=== PATIENT | male | born 1985 | race American Indian/Alaskan Native ===

== ENCOUNTER 2017-03-26 04:30 | Inpatient (IN) | payer OTHER ==
[2017-03-26 05:42] LABS: Basophils % (Auto) 0.6 % (0.0-1.8); Eosinophils % (Auto) 2.2 % (0.0-4.3); Hematocrit 44.6 % (35.5-45.6); Hemoglobin 15.5 gm/dl (11.8-15.2); Mean Corpuscular HGB Conc 35 % (32-34); Mean Corpuscular Hemoglobin 31 pg (28-32); Mean Corpuscular Volume 89 fl (84-94); Platelet Count 246 K/mm3 (140-440); Red Blood Count 5.04 M/mm3 (3.65-5.03); Red Cell Distribution Width 13.5 % (13.2-15.2); White Blood Count 8.7 K/mm3 (4.5-11.0)
[2017-03-26 05:57] LABS: Anion Gap 19 mmol/L; BUN/Creatinine Ratio 21.11; Blood Urea Nitrogen 19 mg/dL (9-20); Calcium 9.9 mg/dL (8.4-10.2); Carbon Dioxide 25 mmol/L (22-30); Chloride 96.5 mmol/L (98-107); Glucose 108 mg/dL (75-100); Potassium 3.9 mmol/L (3.6-5.0); Sodium 137 mmol/L (137-145)
[2017-03-26] MEDS ORDERED: CARDIZEM IV ONE (06:20)
[2017-03-26 06:49] LABS: Urine Drugs of Abuse Note Disclamer
[2017-03-26 06:55] LABS: Bilirubin,Urine NEG (Negative); Blood,Urine NEG (Negative); Ketones,Urine NEG (Negative); Leukocyte Esterase,Urine NEG (Negative); Mucus,Urine FEW /HPF; Nitrite,Urine NEG (Negative); Protein,Urine <15 mg/dL mg/dL (Negative); Urobilinogen,Urine < 2.0 mg/dL (<2.0)
[2017-03-26 07:53] LABS: INR 0.9 (0.87-1.13)
[2017-03-26 07:54] LABS: Partial Thromboplastin Time 29.7 Sec. (24.2-36.6)
[2017-03-26 08:06] LABS: Alanine Aminotransferase 43 units/L (7-56); Albumin 4.6 g/dL (3.9-5); Albumin/Globulin Ratio 1.6 %; Alkaline Phosphatase 95 units/L (35-129); Total Protein 7.4 g/dL (6.3-8.2)
[2017-03-26 08:12] LABS: Bilirubin,Direct < 0.2 mg/dL (0-0.2)
[2017-03-26] MEDS ORDERED: NITROSTAT SL PRN (08:19)
[2017-03-26] MEDS ORDERED: MORPHINE IV PRN (08:19)
[2017-03-26] MEDS ORDERED: SODIUM CHLORIDE FLUSH SYRINGE 10 ML IV PRN (08:19)
[2017-03-26 09:11] LABS: Basophils % (Auto) 0.6 % (0.0-1.8); Hematocrit 45.9 % (35.5-45.6); Hemoglobin 15.7 gm/dl (11.8-15.2); Mean Corpuscular HGB Conc 34 % (32-34); Mean Corpuscular Hemoglobin 31 pg (28-32); Mean Corpuscular Volume 90 fl (84-94); Platelet Count 252 K/mm3 (140-440); Red Blood Count 5.09 M/mm3 (3.65-5.03); Red Cell Distribution Width 13.5 % (13.2-15.2); White Blood Count 8.3 K/mm3 (4.5-11.0)
[2017-03-26 09:15] LABS: Anion Gap 19 mmol/L; BUN/Creatinine Ratio 17.77; Blood Urea Nitrogen 16 mg/dL (9-20); Calcium 9.6 mg/dL (8.4-10.2); Carbon Dioxide 26 mmol/L (22-30); Chloride 97.2 mmol/L (98-107); Cholesterol 186 mg/dL (50-199); Glucose 106 mg/dL (75-100); HDL Cholesterol 55 mg/dL (40-59); LDL Cholesterol,Direct 93 mg/dL (50-130); Sodium 138 mmol/L (137-145); Triglycerides 192 mg/dL (2-149)
--- NOTE | 2017-03-26 09:24 | History and Physical Report ---
History of Present Illness Date of examination: 03/26/17 Date of admission: 03/26/17 08:09 Chief complaint: I feel my heart is skipping beats, and am having some chest pain" History of present illness: Patient is a 31-year-old male with no significant past medical history who presents to the hospital with complaint of palpitations and chest pain. He reports that the symptoms started in the early hours of this morning waking him up from sleep about 4 hours prior to presentation to the hospital. He describes a sensation of skipped beats. He also reports an atypical chest pain which he states is not reproducible, nonexertional changes waxes and wanes describes as as 4/10 intensity with no aggravating or alleviating factors. He reports that he has experienced skipping heartbeats since he was age 22 and most times will resolve with Valsalva maneuver, But this time was not resolving. He denies any diaphoresis, social shortness of breath, nausea vomiting or diarrhea. He denies any fever. ROS Constitutional: No fever, fatigue or weight loss. Skin: No rash. Eyes: No recent vision problems or eye pain. ENT: No congestion, ear pain, or sore throat. Endocrine: No thyroid problems. Cardiovascular: Chest pain with palpitations Respiratory: No cough, shortness of breath, congestion, or wheezing. Gastrointestinal: No abdominal pain, nausea, vomiting, or diarrhea. Genitourinary: No dysuria. Musculoskeletal: No joint swelling. Neurologic: No seizures. Hematologic: No unusual bruising or bleeding. Psychiatric: No psychiatric problems, hallucinations or depression. All other systems reviewed and otherwise negative. Past History Past Medical History: No medical history Past Surgical History: No surgical history Social history: full code. denies: smoking, alcohol abuse, prescription drug abuse, IV drug use Family history: no significant family history Medications and Allergies Allergies Allergy/AdvReac Type Severity Reaction Status Date / Time No Known Allergies Allergy Unverified 03/26/17 04:53 Home Medications Medication Instructions Recorded Confirmed Last Taken Type No Known Home Medications [No 03/26/17 03/26/17 Unknown History Reported Home Medications] Active Meds: Active Medications Aspirin (Aspirin) 325 mg PO QDAY AGUS Atorvastatin Calcium (Lipitor) 40 mg PO QHS AGUS Morphine Sulfate (Morphine) 2 mg IV Q5MIN PRN PRN Reason: Chest Pain Nitroglycerin (Nitrostat) 0.4 mg SL Q5M PRN PRN Reason: Chest Pain Sodium Chloride (Sodium Chloride Flush Syringe 10 Ml) 10 ml IV PRN PRN PRN Reason: LINE FLUSH Exam - Physical Exam Narrative exam: VITAL SIGNS: Reviewed. GENERAL: The patient appeared well nourished and normally developed. Vital signs as documented. HEAD: No signs of head trauma. EYES: Pupils are equal. Extraocular motions intact. EARS: Hearing grossly intact. MOUTH: Oropharynx is normal. NECK: No adenopathy, no JVD. CHEST: Chest with clear breath sounds bilaterally. No wheezes, rales, or rhonchi. CARDIAC: Regularly irregular rate and rhythm. S1 and S2, without murmurs, gallops, or rubs. VASCULAR: No Edema. Peripheral pulses normal and equal in all extremities. ABDOMEN: Soft, without detectable tenderness. No sign of distention. No rebound or guarding, and no masses palpated. Bowel Sounds normal. MUSCULOSKELETAL: Good range of motion of all major joints. Extremities without clubbing, cyanosis or edema. NEUROLOGIC EXAM: Alert and oriented x 3. No focal sensory or strength deficits. Speech normal. Follows commands. PSYCHIATRIC: Mood normal. SKIN: No rash or lesions. - Constitutional Vitals: Temp Pulse Resp BP Pulse Ox 97.7 F 120 H 20 148/85 98 03/26/17 04:53 03/26/17 06:46 03/26/17 05:44 03/26/17 06:46 03/26/17 05:44 Results - Labs CBC & Chem 7: 03/26/17 09:02 03/26/17 07:24 Labs: Laboratory Last Values WBC 8.3 K/mm3 (4.5-11.0) 03/26/17 09:02 RBC 5.09 M/mm3 (3.65-5.03) H 03/26/17 09:02 Hgb 15.7 gm/dl (11.8-15.2) H 03/26/17 09:02 Hct 45.9 % (35.5-45.6) H 03/26/17 09:02 MCV 90 fl (84-94) 03/26/17 09:02 MCH 31 pg (28-32) 03/26/17 09:02 MCHC 34 % (32-34) 03/26/17 09:02 RDW 13.5 % (13.2-15.2) 03/26/17 09:02 Plt Count 252 K/mm3 (140-440) 03/26/17 09:02 Lymph % (Auto) 24.5 % (13.4-35.0) 03/26/17 09:02 [place] % (Auto) 6.7 % (0.0-7.3) 03/26/17 09:02 Eos % (Auto) 2.0 % (0.0-4.3) 03/26/17 09:02 Baso % (Auto) 0.6 % (0.0-1.8) 03/26/17 09:02 Lymph # 2.0 K/mm3 (1.2-5.4) 03/26/17 09:02 [place] # 0.6 K/mm3 (0.0-0.8) 03/26/17 09:02 Eos # 0.2 K/mm3 (0.0-0.4) 03/26/17 09:02 Baso # 0.1 K/mm3 (0.0-0.1) 03/26/17 09:02 Seg Neutrophils % 66.2 % (40.0-70.0) 03/26/17 09:02 Seg Neutrophils # 5.5 K/mm3 (1.8-7.7) 03/26/17 09:02 PT 12.1 Sec. (12.2-14.9) L 03/26/17 07:24 INR 0.90 (0.87-1.13) 03/26/17 07:24 APTT 29.7 Sec. (24.2-36.6) 03/26/17 07:24 Sodium 138 mmol/L (137-145) 03/26/17 07:24 Potassium 4.0 mmol/L (3.6-5.0) 03/26/17 07:24 Chloride 97.2 mmol/L (98-107) L 03/26/17 07:24 Carbon Dioxide 26 mmol/L (22-30) 03/26/17 07:24 Anion Gap 19 mmol/L 03/26/17 07:24 BUN 16 mg/dL (9-20) 03/26/17 07:24 Creatinine 0.9 mg/dL (0.8-1.5) 03/26/17 07:24 Estimated GFR > 60 ml/min 03/26/17 07:24 BUN/Creatinine Ratio 17.77 % 03/26/17 07:24 Glucose 106 mg/dL (75-100) H 03/26/17 07:24 Calcium 9.6 mg/dL (8.4-10.2) 03/26/17 07:24 Magnesium 2.00 mg/dL (1.7-2.3) 03/26/17 07:24 Total Bilirubin 0.30 mg/dL (0.1-1.2) 03/26/17 07:24 Direct Bilirubin < 0.2 mg/dL (0-0.2) 03/26/17 07:24 AST 24 units/L (5-40) 03/26/17 07:24 ALT 43 units/L (7-56) 03/26/17 07:24 Alkaline Phosphatase 95 units/L (35-129) 03/26/17 07:24 Troponin T < 0.010 ng/mL (0.00-0.029) 03/26/17 07:24 NT-Pro-B Natriuret Pep 35.36 pg/mL (0-450) 03/26/17 07:24 Total Protein 7.4 g/dL (6.3-8.2) 03/26/17 07:24 Albumin 4.6 g/dL (3.9-5) 03/26/17 07:24 Albumin/Globulin Ratio 1.6 % 03/26/17 07:24 Triglycerides 192 mg/dL (2-149) H 03/26/17 07:24 Cholesterol 186 mg/dL (50-199) 03/26/17 07:24 LDL Cholesterol Direct 93 mg/dL (50-130) 03/26/17 07:24 HDL Cholesterol 55 mg/dL (40-59) 03/26/17 07:24 Cholesterol/HDL Ratio 3.38 % 03/26/17 07:24 TSH 1.170 mlU/mL (0.270-4.200) 03/26/17 07:24 Free T4 1.23 ng/dL (0.76-1.46) 03/26/17 07:24 Urine Color Straw (Yellow) 03/26/17 06:42 Urine Turbidity Clear (Clear) 03/26/17 06:42 Urine pH 8.0 (5.0-7.0) H 03/26/17 06:42 Ur Specific [place] 1.012 (1.003-1.030) 03/26/17 06:42 Urine Protein <15 mg/dl mg/dL (Negative) 03/26/17 06:42 Urine Glucose (UA) Neg mg/dL (Negative) 03/26/17 06:42 Urine Ketones Neg mg/dL (Negative) 03/26/17 06:42 Urine Blood Neg (Negative) 03/26/17 06:42 Urine Nitrite Neg (Negative) 03/26/17 06:42 Urine Bilirubin Neg (Negative) 03/26/17 06:42 Urine Urobilinogen < 2.0 mg/dL (<2.0) 03/26/17 06:42 Ur Leukocyte Esterase Neg (Negative) 03/26/17 06:42 Urine WBC (Auto) 2.0 /HPF (0.0-6.0) 03/26/17 06:42 Urine RBC (Auto) 3.0 /HPF (0.0-6.0) 03/26/17 06:42 Urine Mucus Few /HPF 03/26/17 06:42 Urine Opiates Screen Presumptive negative 03/26/17 06:42 Urine Methadone Screen Presumptive negative 03/26/17 06:42 Ur Barbiturates Screen Presumptive negative 03/26/17 06:42 Ur Phencyclidine Scrn Presumptive negative 03/26/17 06:42 Ur Amphetamines Screen Presumptive negative 03/26/17 06:42 U Benzodiazepines Scrn Presumptive negative 03/26/17 06:42 Urine Cocaine Screen Presumptive negative 03/26/17 06:42 U Marijuana (THC) Screen Presumptive negative 03/26/17 06:42 Drugs of Abuse Note Disclamer 03/26/17 06:42 - Imaging and Cardiology EKG: image reviewed (afib) Assessment and Plan Assessment and plan: Patient is a 31-year-old male with no significant past medical history who presents to the hospital with complaint of palpitations and chest pain. He reports that the symptoms started in the early hours of this morning waking him up from sleep about 4 hours prior to presentation to the hospital. He describes a sensation of skipped beats. He also reports an atypical chest pain which he states is not reproducible, nonexertional changes waxes and wanes describes as as 4/10 intensity with no aggravating or alleviating factors. He reports that he has experienced skipping heartbeats since he was age 22 and most times will resolve with Valsalva maneuver, But this time was not resolving. He denies any diaphoresis, social shortness of breath, nausea vomiting or diarrhea. He denies any fever. Atrial Fibrillation with RVR * Start on Diltazem Drip, * Check thryoid panel, Echo cardiogram * Cardiology consult * UDS reveiwed and negative Atypical chest pain * acs Protocol, Asa, troponin DVT/GI prophy Plan of care discussed with patient and family Advance Directives: Yes Plan of care discussed with patient/family: Yes
--- NOTE | 2017-03-26 09:54 | XRay Report ---
ROUTINE CHEST, TWO VIEWS: HISTORY: Shortness of breath. The trachea, heart, mediastinal contour, lung wheeler and bony thorax are unremarkable. IMPRESSION: Unremarkable chest x-ray.
[2017-03-26] MEDS ORDERED: CARDIZEM/D5W 100MG/100ML 100 MG/100 ML BAG IV SCH (10:00)
[2017-03-26] MEDS: ASPIRIN PO SCH (10:39)
[2017-03-26 10:51] LABS: Bilirubin,Urine NEG (Negative); Blood,Urine NEG (Negative); Ketones,Urine NEG (Negative); Leukocyte Esterase,Urine NEG (Negative); Nitrite,Urine NEG (Negative); Protein,Urine <15 mg/dL mg/dL (Negative); RBC,Urine < 1.0 /HPF (0.0-6.0); Urobilinogen,Urine < 2.0 mg/dL (<2.0)
--- NOTE | 2017-03-26 13:36 | Emergency Department Report ---
ED General Adult HPI - General Chief complaint: Chest Pain Stated complaint: CP/LALITHA Time Seen by Provider: 03/26/17 06:16 Source: patient Mode of arrival: Ambulatory Limitations: No Limitations - History of Present Illness Initial comments: The patient states that the reason why he came to the hospital is because he has an irregular heart rhythm which has persisted for the last few days. He states he occasionally has chest pain with this is not an active complaint. He is not complaining of chest pain now nor dyspnea. He admits that he had palpitations and or an irregular heart rhythm for the past 8 years. He states that he usually can control it by essentially of Valsalva maneuver. However now it is persistent. He denies ever seeing a doctor for evaluation. He does not complain of shortness breath nausea vomiting or sweating leg pain or swelling. Said no recent travel. He has no history of thyroid disease. -: year(s) (see HPI) Location: chest (anterior nonradiating nonpleuritic) Radiation: non-radiation Severity scale (0 -10): 0 Quality: other (did not describe) Consistency: now resolved Improves with: none Worsens with: none Associated Symptoms: denies other symptoms Treatments Prior to Arrival: none - Related Data Home Medications Medication Instructions Recorded Confirmed Last Taken No Known Home Medications [No 03/26/17 03/26/17 Unknown Reported Home Medications] Allergies Allergy/AdvReac Type Severity Reaction Status Date / Time No Known Allergies Allergy Unverified 03/26/17 04:53 ED Review of Systems ROS: Stated complaint: CP/LALITHA Other details as noted in HPI Constitutional: denies: chills, fever Eyes: denies: eye pain, eye discharge, vision change ENT: denies: ear pain, throat pain Respiratory: denies: cough, shortness of breath, wheezing Cardiovascular: as per HPI, chest pain. denies: palpitations Endocrine: no symptoms reported Gastrointestinal: denies: abdominal pain, nausea, diarrhea Genitourinary: denies: urgency, dysuria Musculoskeletal: denies: back pain, joint swelling, arthralgia Skin: denies: rash, lesions Neurological: denies: headache, weakness, paresthesias Psychiatric: denies: anxiety, depression Hematological/Lymphatic: denies: easy bleeding, easy bruising ED Past Medical Hx - Past Medical History Previous Medical History?: No - Surgical History Past Surgical History?: Yes Additional Surgical History: hernia repair - Social History Smoking Status: Current Every Day Smoker - Medications Home Medications: Home Medications Medication Instructions Recorded Confirmed Last Taken Type No Known Home Medications [No 03/26/17 03/26/17 Unknown History Reported Home Medications] ED Physical Exam - General Limitations: No Limitations General appearance: alert, in no apparent distress - Head Head exam: Present: atraumatic, normocephalic - Eye Eye exam: Present: normal appearance. Absent: scleral icterus - ENT ENT exam: Present: mucous membranes moist - Neck Neck exam: Present: normal inspection - Respiratory Respiratory exam: Present: normal lung sounds bilaterally. Absent: respiratory distress - Cardiovascular Cardiovascular Exam: Present: tachycardia, irregular rhythm. Absent: systolic murmur, diastolic murmur, rubs, gallop - GI/Abdominal GI/Abdominal exam: Present: soft, normal bowel sounds. Absent: distended, tenderness, guarding, rebound - Rectal Rectal exam: Present: deferred - Extremities Exam Extremities exam: Present: normal inspection - Back Exam Back exam: Present: normal inspection - Neurological Exam Neurological exam: Present: alert, oriented X3, CN II-XII intact. Absent: motor sensory deficit - Psychiatric Psychiatric exam: Present: normal affect, normal mood - Skin Skin exam: Present: warm, dry, intact, normal color. Absent: rash ED Course Vital Signs 03/26/17 03/26/17 03/26/17 04:53 05:44 06:46 Temperature 97.7 F Pulse Rate 119 H 120 H Respiratory 20 Rate Blood Pressure 140/88 148/85 Blood Pressure [Left] O2 Sat by Pulse 98 98 Oximetry 03/26/17 10:39 Temperature 98.2 F Pulse Rate 95 H Respiratory 20 Rate Blood Pressure Blood Pressure 113/96 [Left] O2 Sat by Pulse 99 Oximetry - Reevaluation(s) Reevaluation #1: Patient was given 5 of diltiazem IV. This produced adequate rate control. I think he probably can be placed on by mouth medication. In any case he was hemodynamically stable and admitted to the hospital service further care and evaluation. I think likely this patient will require anticoagulation. However , I will leave the choice thereof to the hospitalist staff. 03/26/17 13:43 03/26/17 13:45 ED Medical Decision Making - Lab Data Result diagrams: 03/26/17 09:02 03/26/17 07:24 - EKG Data EKG shows normal: axis, intervals, QRS complexes (somewhat increased voltage), ST-T waves (nonspecific change) Rate: tachycardia - EKG Data Interpretation: other (atrial fibrillation with RVR) - Radiology Data interpreted by me: Chest x-ray showed no acute process Critical care attestation.: If time is entered above; I have spent that time in minutes in the direct care of this critically ill patient, excluding procedure time. ED Disposition Clinical Impression: Atrial fibrillation with RVR Chest pain Qualifiers: Chest pain type: unspecified Qualified Code(s): R07.9 - Chest pain, unspecified Disposition: DC-09 OP ADMIT IP TO THIS HOSP Is pt being admited?: Yes Does the pt Need Aspirin: Yes Condition: Stable Time of Disposition: 13:47
--- NOTE | 2017-03-26 16:11 | Consultation ---
Past History Past Medical History: No medical history Past Surgical History: No surgical history Social history: full code. denies: smoking, alcohol abuse, prescription drug abuse, IV drug use Family history: no significant family history Medications and Allergies Allergies Allergy/AdvReac Type Severity Reaction Status Date / Time No Known Allergies Allergy Unverified 03/26/17 04:53 Home Medications Medication Instructions Recorded Confirmed Last Taken Type No Known Home Medications [No 03/26/17 03/26/17 Unknown History Reported Home Medications] Active Meds: Active Medications Aspirin (Aspirin) 325 mg PO QDAY AGUS Last Admin: 03/26/17 10:39 Dose: 325 mg Diltiazem HCl (Cardizem/D5w 100mg/100ml) 100 mg in 100 mls @ 5 mls/hr IV TITR AGUS; 5 MG/HR PRN Reason: Protocol Last Admin: 03/26/17 12:48 Dose: 5 mg/hr, 5 mls/hr Morphine Sulfate (Morphine) 2 mg IV Q5MIN PRN PRN Reason: Chest Pain Nitroglycerin (Nitrostat) 0.4 mg SL Q5M PRN PRN Reason: Chest Pain Sodium Chloride (Sodium Chloride Flush Syringe 10 Ml) 10 ml IV PRN PRN PRN Reason: LINE FLUSH Physical Examination Vital Signs Temp Pulse BP Pulse Ox 97.7 F 119 H 140/88 98 03/26/17 04:53 03/26/17 04:53 03/26/17 04:53 03/26/17 04:53 Results 03/26/17 09:02 03/26/17 07:24 CBC 03/26/17 Range/Units 09:02 WBC 8.3 (4.5-11.0) K/mm3 RBC 5.09 H (3.65-5.03) M/mm3 Hgb 15.7 H (11.8-15.2) gm/dl Hct 45.9 H (35.5-45.6) % Plt Count 252 (140-440) K/mm3 Lymph # 2.0 (1.2-5.4) K/mm3 [place] # 0.6 (0.0-0.8) K/mm3 Eos # 0.2 (0.0-0.4) K/mm3 Baso # 0.1 (0.0-0.1) K/mm3 Assessment and Plan Detailed Cardiology consult dictated.
[2017-03-26] MEDS ORDERED: LOPRESSOR PO STA (16:16)
[2017-03-26] MEDS: LOPRESSOR PO SCH (22:50)
[2017-03-27 08:59] VITALS: BP 118/74
--- NOTE | 2017-03-27 10:25 | Discharge Summary ---
Providers - Providers Date of Admission: 03/26/17 08:09 Date of discharge: 03/27/17 Attending physician: EVELIO GRANT MD 03/26/17 Consult to Cardiac Rehabilitation [CONS] Routine Reason For Exam: Phase I 03/26/17 08:18 Consult to Physician [CONS] Routine Consulting Provider: DALIA AQUINO Reason For Exam: afib Place consult to:: Dr. Aquino Notified:: Carolee ROSA Phone number called:: Was contact made?: Yes If yes, spoke with:: [facility] Time called:: 10:46 Primary care physician: [employer] Hospitalization Reason for admission: palpitations Condition: Stable Hospital course: Patient is a 31-year-old male with no significant past medical history who presents to the hospital with complaint of palpitations and chest pain. He reports that the symptoms started in the early hours of this morning waking him up from sleep about 4 hours prior to presentation to the hospital. He describes a sensation of skipped beats. He also reports an atypical chest pain which he states is not reproducible, nonexertional changes waxes and wanes describes as as 4/10 intensity with no aggravating or alleviating factors. He reports that he has experienced skipping heartbeats since he was age 22 and most times will resolve with Valsalva maneuver, But this time was not resolving. He denies any diaphoresis, social shortness of breath, nausea vomiting or diarrhea. He denies any fever. Patient was seen by solar crew member and he confided in the solar crew member that he does drink a liter of carbonated CAFFEINATED drinks daily. The solar crew member did advise the patient appropriately to cut down on this limited to one all to 1-2 cans week effects of caffeine was discussed with the patient in detail the patient verbalized understanding echocardiogram did not reveal any wall motion abnormalities EF was maintained at 50-55% he was started on metoprolol and aspirin and recommended to follow with cardiology in 1 week. Patient advised to restrict activities that will increase heart rate, until seen by solar crew member. He verbalized understanding. Discharge Diagnosis * Afib with RVR * Atypical chest pain Disposition: - TO HOME OR SELFCARE Time spent for discharge: 35 mins Core Measure Documentation - Palliative Care Palliative Care/ Comfort Measures: Not Applicable - Core Measures Any of the following diagnoses?: none - VTE Discharge Requirements Deep Vein Thrombosis/Pulmonary Embolism Present on Admission: No Exam - Physical Exam Narrative exam: VITAL SIGNS: Reviewed. GENERAL: The patient appeared well nourished and normally developed. Vital signs as documented. HEAD: No signs of head trauma. EYES: Pupils are equal. Extraocular motions intact. EARS: Hearing grossly intact. MOUTH: Oropharynx is normal. NECK: No adenopathy, no JVD. CHEST: Chest with clear breath sounds bilaterally. No wheezes, rales, or rhonchi. CARDIAC: Regularly irregular rate and rhythm. S1 and S2, without murmurs, gallops, or rubs. VASCULAR: No Edema. Peripheral pulses normal and equal in all extremities. ABDOMEN: Soft, without detectable tenderness. No sign of distention. No rebound or guarding, and no masses palpated. Bowel Sounds normal. MUSCULOSKELETAL: Good range of motion of all major joints. Extremities without clubbing, cyanosis or edema. NEUROLOGIC EXAM: Alert and oriented x 3. No focal sensory or strength deficits. Speech normal. Follows commands. PSYCHIATRIC: Mood normal. SKIN: No rash or lesions. - Constitutional Vitals: Temp Pulse Resp BP Pulse Ox 97.7 F 80 18 118/74 98 03/27/17 08:00 03/27/17 08:00 03/27/17 08:00 03/27/17 08:00 03/27/17 08:00 Plan Activity: advance as tolerated (but restrict to low intensity activities), fall precautions Diet: low fat Special Instructions: record daily weights, record daily BP diary Follow up with: TENZIN CRUZ MD [Primary Care Provider] - 7 Days RENNY RICHEY MD [Staff Physician] - 7 Days Prescriptions: Aspirin [Aspirin TAB] 325 mg PO QDAY #30 tablet Metoprolol [Lopressor TAB] 25 mg PO BID #60 tablet
--- NOTE | 2017-03-27 11:33 | Admit Criteria Form ---
Admission Criteria Documentation: ATRIAL FIBRILLATION Clinical Indications for Admission to Inpatient Care (Place 'X' for any and all applicable criteria): Admission indicated for ANY ONE of the following(1)(2)(3)(4)(5) : [ ]I. Myocardial ischemia [ ]II. Dyspnea or hypoxemia [ ]III. Hemodynamic instability [ ]IV. Heart failure (e.g., pulmonary edema) (7) [ ]V. New-onset (less than 48 hours) atrial fibrillation with high risk for causing complications secondary to comorbidities (eg, symptomatic heart failure ) [ ]. Altered mental status [ ]VII. Syncope [ ]VIII. Patient has implantable cardioverter defibrillator that has fired more than once within past 24hr or needs immediate adjustment of settings that cannot be done other than in inpatient setting. (8) [ ]IX. Suspected accessory pathway (e.g., Mgfsg-Kmboexqat-Ceguq syndrome) on ECG [ ]X. Recent systemic thromboembolism (eg, stroke) [ ]XI. Medication toxicity (e.g., digitalis) causing arrhythmia(9) [ ]XII. Underlying medical condition that necessitates inpatient care (e.g., thyrotoxicosis, pneumonia) (10) [ ]XIII. Continuous ECG monitoring is required for condition causing arrhythmia (e.g., severe hyperkalemia, hypokalemia, acid-base disturbance).(11)(12)(13) [ ]XIV. Initiation of antiarrhythmic drug therapy is needed in patient at high risk of adverse effects as indicated by ANY ONE of the following: [ ]a) Significant structural heart disease (e.g., reduced ejection fraction, congenital heart disease, valvular heart disease) [ ]b) Prolonged QT interval [ ]c) Underlying sinus node or atrioventricular conduction disturbances [ ]d) Need for treatment with antiarrhythmic drugs that have significant proarrhythmic potential (e.g., dofetilide, sotalol, procainamide) [ ]e) Patient whose sinus rhythm has never been observed on ECG [X]XV. Intolerable symptoms despite optimal outpatient treatment [ ]XVI. Elective or urgent cardioversion that cannot be performed on outpatient basis or during observation care. [A] (Use also Atrial Fibrillation: Observation Care ) as appropriate.(14) [ ]XVII.Contraindications and/or Inappropriate clinical situations for Observational Care in patients with Atrial Fibrillation, when ANY ONE of the following is required: [ ]a) Patient with High risk of cardiac embolism (e.g, patients with previous cardiac embolism, LVEF < 40%, age >75 and patients with prosthetic valve) 18 [ ]b) Patient with Moderate risk including DM patient, CAD and patient aged 65-75 18 [ ]c) Patient with any change in cardiac biomarker especially troponin should be managed as high risk in an inpatient setting 19 [ ]d) Physician judgement irrespective of ECG and other diagnostic findings 20 [ ]XVIII.General contraindications and/or Inappropriate clinical situations for Observational Care in patients with Atrial Fibrillation, when ANY ONE of the following is required: [ ]a) Prediction of prolongation of LOS based on ANY ONE of the following may be considered as a contraindication for observational care 2, 3, 4, 5, 6, 7, 8, 9, 10, 11 [ ]i) Age > 65 yrs. [ ]ii) Patient arriving by ambulance [ ]iii) Patient with high acuity [ ]iv) Patient requiring vital sign monitoring [ ]v) Patient on IV medication [ ]b) Systolic blood pressures 180mmHg 3,12 [ ]c) Patient with altered mental status including delirium and other alteration of consciousness3 [ ]d) Patient whose discharge disposition will be to a alf home or rehabilitation home should not be managed in Emergency Department Observation Unit. CMS rule requires 3 days hospital stay before such placement.3,13 [ ]e) Patient with failure to thrive due to broad array of etiologies 3,16,17 [ ]f) Inability to ambulate 3,14 Extended stay beyond goal length of stay may be needed for (1)(25)(26): [ ]a) Unstable comorbidities [ ]b) Persistently uncontrolled atrial fibrillation or other arrhythmias [ ]c) Acute thromboembolic event (e.g., stroke, limb ischemia) [ ]d) Need for inpatient attainment of full anticoagulation The original [facility] content created by [facility] has been revised. The portions of the content which have been revised are identified through the use of italic text or in bold, and [employer] has neither reviewed nor approved the modified material. All other unmodified content is copyright [facility]. Please see references footnoted in the original [facility] edition 2016 Admission Criteria Met: Yes
[2017-03-27] MEDS: LOPRESSOR PO SCH (12:24)
[2017-03-27] MEDS: ASPIRIN PO SCH (12:25)
--- NOTE | 2017-03-27 14:03 | Consultation ---
ADDENDUM The patient is strongly advised to come down on caffeine consumption. Advised him to see that beverages he consumes is free of caffeine and if he takes beverages with caffeine, he is asked to decrease the consumption significantly He can take 1 on 2 cans per week (I explained to him that caffeine may be the precipitating factor for his recurrent episodes of palpitations/atrial fibrillation). JOB# [id number] GERALDINE/LETY FRITZ
--- NOTE | 2017-03-27 16:22 | Consultation ---
CARDIOLOGY CONSULTATION REFERRING PHYSICIAN: Dr. Ralph Novoa, hospitalist. TIME: 3:55 p.m. HISTORY OF PRESENT ILLNESS: A 31-year-old mildly obese (BMI of 30), pleasant -[place] gentleman, recently moved from [place], presented to the ER with complaints of persistent palpitations, which he started having around 3:00 a.m. today when he was watching TV. He also had some moderate heaviness-like chest pains associated with palpitations. No history of hypertension or diabetes mellitus. No history of hyperlipidemia. The first EKG done at 9:44 a.m. revealed atrial fibrillation with moderately fast ventricular response to 104 per minute, normal axis, J-point elevation in V4-V6 and mild nonspecific diffuse T-wave changes. He has abnormal EKG. A single wide QR beat was seen, which could be PVC or more likely an aberrantly conducted beat. He was given 5 mg Cardizem intravenously and started on intravenous Cardizem infusion. He got converted to sinus rhythm and the repeat EKG revealed normal sinus rhythm and nonspecific ST-T changes in anterolateral leads, cannot rule out ischemia. The heart rate is under control. Blood pressure has been stable. There are no obvious precipitating factors for the atrial fibrillation. His urine drug screen is negative.Cardiac enzymes are negative. PAST MEDICAL HISTORY: The patient gives history of occasional palpitations, which was self-limiting. During this occasion, it persisted and that is why he came to the Emergency Room. SOCIAL HISTORY: He smokes approximately around 3 cigarettes per day (1 pack of cigarettes will last for a week). He has been smoking like this for the past 14 years. Occasionally, he takes alcohol. No history of drug abuse; however, he gives history of taking caffeine-containing beverages almost on a daily basis (he will consume approximately 1 L of soda per day). ALLERGIES: None known. MEDICATIONS: Aspirin 325 mg p.o. daily, intravenous diltiazem 5 mg per hour, Nitrostat 0.4 mg sublingual p.r.n. REVIEW OF SYSTEMS: CARDIOVASCULAR: As described in the history. PULMONARY: Negative. METABOLISM AND ENDOCRINOLOGY: The patient is mildly obese. No history of any thyroid problem. He is a chronic light smoker. Review of rest of the 10-systems is negative. PHYSICAL EXAMINATION: GENERAL: A 31-year-old mildly obese, pleasant -[place] gentleman. VITAL SIGNS: He is afebrile, pulse 75 per minute and regular, blood pressure 133/67 mmHg, respirations 16 per minute. NEUROLOGIC: He is alert and oriented x 3. HEENT: Negative. NECK: Supple. No JVD. No bruit. No thyromegaly. HEART: PMI in the normal position. No palpable thrills. Auscultation of heart reveals S1 and S2 regular. No S3 or S4. No murmur or rub. Peripheral pulses felt. No edema. LUNGS: Bilateral air entry good and equal. No bronchial breathing. No wheezing. ABDOMEN: Soft, benign. No organomegaly. SKIN: Negative. BONE and Joints: Negative. LABORATORY AND DIAGNOSTIC DATA: CBC: Platelet count within normal limits. Potassium, BUN, and creatinine within normal limits. D-dimer unremarkable. Cardiac enzymes as described in the history. EKG findings as described in the history. Chest x-ray 2-views unremarkable. His total cholesterol is 186 with LDL of 93, HDL 55, and triglycerides mildly increased to 192. Serum TSH is normal. The patient also gives history of snoring and daytime sleepiness, possibly he has obstructive sleep apnea. IMPRESSION: 1. Palpitations/atrial fibrillation with moderately fast ventricular response - the patient got converted to sinus rhythm at this time with stable blood pressure. 2. Myocardial infarction, ruled out. 3. Mild obesity. 4. History of chronic light smoking. 5. History of caffeine overuse. 6. Possible obstructive sleep apnea. RECOMMENDATIONS: 1. We will place him on p.o. metoprolol and discontinue intravenous Cardizem. 2. Obtain serum magnesium level. 3. We will follow with echocardiogram. Further recommendations will follow. JOB# [id number] [facility]
== END 2017-03-27 12:41 | disposition home or self-care (01) | DRG 313 ==
LOC: ED 04:30 → 4A 08:09
PROVIDERS: ADMIT Hospitalist; ATTEND Internal Medicine
DX: R07.89 Other chest pain (principal); I48.91 Unspecified atrial fibrillation; F17.210 Nicotine dependence, cigarettes, uncomplicated; E66.01 Morbid (severe) obesity due to excess calories; Z68.30 Body mass index [BMI] 30.0-30.9, adult
CPT/HCPCS: 36415; 71020; 80048; 80061; 80074; 80307; 81001; 83735; 83880; 84439; 84443; 84484; 85025; 85379; 85610; 85730; 93005; 93010; 93306; 96374